=== PATIENT | female | born 1980 | race Caucasian/White ===

== ENCOUNTER 2017-10-18 05:32 | Outpatient (CLI) | payer MEDICAID ==
[~2017-10-18] VITALS: Ht 157.5 cm; Wt 59.0 kg
[~2017-10-18 05:32] MED LIST: PREN-53 PO
[2017-10-19] MEDS ORDERED: TRAM50TA2 PO (09:14)
== END 2017-10-18 11:37 ==
LOC: PREOP 05:32
PROVIDERS: ATTEND Surgery
DX: Z01.818 Encounter for other preprocedural examination (principal)

== ENCOUNTER 2017-10-19 08:44 | Day surgery (SDC) | payer MEDICAID ==
[~2017-10-19] VITALS: Ht 157.5 cm; Wt 59.0 kg
[2017-10-19 09:00] VITALS: BP 118/82
[2017-10-19] MEDS ORDERED: ceFAZolin INJECTION 1,000 MG in NS (IVPB) 50 ML IV ONE (09:00)
[2017-10-19] MEDS ORDERED: SEVOFLURANE (ULTANE) 15 ML INHAL SOLN ONE (09:04)
[2017-10-19] MEDS ORDERED: LIDOCAINE PF 2% 5 ML (XYLOCAINE) VIAL ONE (09:04)
[2017-10-19] MEDS ORDERED: proPOfol 200 MG/20 ML (DIPRIVAN) VIAL IV ONE (09:04)
[2017-10-19] MEDS ORDERED: ROCURONIUM 10 MG/ML 5 ML SYRINGE IV ONE (09:04)
[2017-10-19] MEDS ORDERED: fentaNYL INJECTION 100 MCG/2 ML AMP ONE (09:04)
[2017-10-19] MEDS ORDERED: GLYCOPYRROLATE 0.2 MG/ML (ROBINUL) 2 ML VIAL ONE (09:04)
[2017-10-19] MEDS ORDERED: ONDANSETRON 4 MG/2 ML (SDV) Z0FRAN ONE (09:04)
[2017-10-19] MEDS ORDERED: NEOSTIGMINE 1 MG/ML 5 ML SYRINGE ONE (09:04)
[2017-10-19] MEDS ORDERED: MIDAZOLAM 2 MG/2 ML (VERSED) VIAL ONE (09:05)
--- NOTE | 2017-10-19 09:10 | Progress Note-Pre Operative ---
Pre-Operative Progress Note H&P Reviewed The H&P was reviewed, patient examined and no changes noted. Date Seen by Provider: Oct 09, 2017 Time Seen by Provider: 09:10 Date H&P Reviewed: Oct 19, 2017 Time H&P Reviewed: 09:10 Pre-Operative Diagnosis: Recurrent sebaceous cyst-Back PAUL PALMA MD Oct 19, 2017 9:10 am
[2017-10-19] MEDS ORDERED: TRAM50TA2 PO (09:14)
--- NOTE | 2017-10-19 09:15 | Discharge Inst-Simple/Standard ---
Discharge Inst-Standard Discharge Medications New, Converted or Re-Newed RX: RX on Chart Patient Instructions/Follow Up Plan of Care/Instructions/FU: Dressing off in48 hours. F/U with my nurse in 10 days for suture removal Activity as Tolerated: Yes Discharge Diet: No Restrictions PAUL PALMA MD Oct 19, 2017 9:15 am
[2017-10-19] MEDS ORDERED: LIDOCAINE 1% INJ 20 ML 20 ML VIAL ONE (09:25)
[2017-10-19] MEDS ORDERED: BUP/EPI 0.5% 1:200,000 (SENSORCAINE) 30 ML VIAL ONE (09:37)
--- NOTE | 2017-10-19 09:51 | Operative Report ---
Operative Report Date of Procedure/Surgery Oct 19, 2017 Surgeon (s) PAUL PALMA MD Caddy (s): Lucero Lino (Med Student) Post-Operative Diagnosis same Procedure Performed excision Description of Procedure Anesthesia Type: Block Estimated blood loss (mL): minimal Specimen(s) collected/removed sebaceous cyst Description of the Procedure Indication for the procedure: This lady presented with a sebaceous cyst over her mid back, slightly superior to where she had undergone excision of a sebaceous cyst, about 2 years ago. At her request, she was offered excision under local anesthetic. Informed consent was obtained after reviewing the procedure and complications of postoperative hematoma, wound infection and recurrence of the sebaceous cyst. Description of procedure: She was placed in right lateral decubitus position and the area prepared and draped in the usual sterile manner. Local anesthesia was achieved using a combination of 1 percent lidocaine and 0.5 percent Marcaine with epinephrine. An elliptical incision about 4 cm long was made and the cyst excised intact. Hemostasis was achieved using cautery and the incision closed using 3-0 Vicryl for the deeper layer and 4-0 nylon for skin, in an interrupted fashion. A nonadherent dressing was then applied. She tolerated the procedure well and was taken to the recovery room in a stable condition Findings of the Procedure See op report Allergies and Home Medications Allergies Coded Allergies: No Known Drug Allergies (Unverified , 05/10/15) Home Medications Tramadol HCl 50 Mg Tablet, 50 MG PO Q12H Prescribed by: PAUL PALMA on 10/19/17 0914 Patient Home Medication List Home Medication List Reviewed: Yes PAUL PALMA MD Oct 19, 2017 9:51 am
[2017-10-19 09:59] VITALS: BP 129/91
[2017-10-19] MEDS ORDERED: morphine INJ 10 MG/ML 1ML (SYR OR VIAL) ONE (10:08)
[2017-10-19 10:19] VITALS: BP 124/76
== END 2017-10-19 10:20 | disposition home or self-care (01) ==
LOC: SDC 08:44
PROVIDERS: ATTEND Surgery
DX: L72.0 Epidermal cyst (principal)
CPT/HCPCS: 84703; 87081